=== PATIENT | male | born 1960 | race Caucasian/White ===

== ENCOUNTER → 2019-01-24 | Outpatient (CLI) | payer OTHER ==
--- NOTE | 2019-01-24 20:38 | MR ---
EXAMINATION TYPE: MR shoulder LT wo con DATE OF EXAM: 01/24/2019 8:28 PM COMPARISON: NONE HISTORY: Lt Shoulder pain TECHNIQUE: Multiplanar multispin echo imaging of the left shoulder was performed. FINDINGS: Rotator cuff : Mild thickening of the supraspinatus tendon compatible with chronic tendinopathy. Ther e is no complete or bursal/articular sided partial rotator cuff tear. The subscapularis constituent o f the rotator cuff is intact. Bursa: No bursal effusion or thickening is seen. Musculature: There is no muscular tear, contusion, or atrophy. Acromioclavicular joint : There are mild to moderate degenerative changes of the acromioclavicular stephanie int. There is no anterior or lateral acromial downsloping. Osseous structures : There are no fractures or regions of abnormal bone marrow signal intensity. Long biceps tendon : The biceps tendon is normally situated within the bicipital groove. No complete or partial biceps tendon tear is present. Biceps tenosynovitis noted. Glenohumeral Joint fluid : There is no glenohumeral joint effusion. Cartilage and Bone : No focal hyaline cartilage defects are noted. No Hill-Sachs, reverse Hill-Sachs, or bony Bankart lesions are seen. Labrum : There are no SLAP or soft tissue Bankart lesions. No paralabral cysts are seen. OTHER FINDINGS : Small joint effusion noted. IMPRESSION: 1. Chronic tendinopathy supraspinatus tendon.
== END | disposition home or self-care (01) ==
LOC: RADMRIMAIN 19:43
PROVIDERS: ATTEND Orthopaedic Surgery Sports Medicine
DX: M75.82 Other shoulder lesions, left shoulder (principal)